=== PATIENT | female | born 1985 | race Caucasian/White ===

== ENCOUNTER 2016-09-11 12:24 | Emergency (ER) | payer OTHER ==
[~2016-09-11 12:24] MED LIST: ALBUTEROL HFA60 DOSE IN; FERROUS SULFAT324 MG PO; FLUOXETINE HCL10 M1 PO; PERCOCET1 TA1 PO; VICODIN EQUIVAL1 TAB PO
--- NOTE | 2016-09-11 15:41 | DIAGNOSTIC IMAGING REPORT ---
PROCEDURE: US COMPLETE PELVIC W/TRANSVAG INDICATION: PELVIC PAIN TECHNIQUE: Transabdominal and endovaginal whelan scale and color Doppler sonographic images of the female pelvis were obtained. COMPARISON: Pelvic ultrasound dated 10/21/[address] of the abdomen and pelvis dated 08/25/14 FINDINGS: TRANSABDOMINAL SCANS: Anteverted uterus measures 8.7 x 4.7 x 6.7 cm. Bicornuate morphology is present. Endometrium measures about 8 mm in thickness. The right ovary contains a dominant follicle measuring 2.4 cm. No myometrial masses. TRANSVAGINAL SCANS: The myometrium is normal without mass. Normal morphology of a bicornuate variety. Greatest endometrial thickness is 8 mm. Left ovary was not identified. Right ovary measures 3.4 x 2.8 x 3.6 cm and contains a dominant 2.4 cm follicle and normal vascular flow. IMPRESSION: 1. Bicornuate uterus. 2. right ovary 2.4 cm follicle
--- NOTE | 2016-09-11 16:19 | DIAGNOSTIC IMAGING REPORT ---
PROCEDURE: CT ABD/PELVIS WITH CONTRAST CLINICAL INDICATION: Mid abdominal pain x 3 days, initial encounter TECHNIQUE: 95 ml of Isovue 300 were injected intravenously and axial images were obtained of the entire abdomen and pelvis with sagittal and coronal reformations. The patient has a shellfish allergy and was premedicated with 50 mg of Benadryl prior to the examination. The patient tolerated the examination well. COMPARISON: Pelvic ultrasound 09/11/[address] abdomen/pelvis 08/25/2014 FINDINGS: ABDOMEN: Lung base are clear. Heart size is normal. Liver, gallbladder, pancreas, spleen and adrenal glands are normal. Multiple nonobstructing bilateral calculi, largest on the left 3 mm. Left renal cysts. Normal abdominal aorta. Nonspecific bowel gas pattern. PELVIS: Normal appendix. Bilateral tubal ligation clips. 4 cm right ovarian cyst. No inflammatory changes or free fluid. 1 cm fat filled umbilical hernia. Bones are unremarkable. IMPRESSION: 1. Nonobstructing bilateral renal calculi 2. 4 cm right ovarian cyst 3. Status post tubal ligation 4. Results discussed with ABA Leach All CT scans at this facility use dose modulation, iterative reconstruction, and/or weight-based dosing when appropriate to reduce radiation dose to as low as reasonably achievable.
--- NOTE | 2016-09-11 16:22 | ED NURSING NOTES ---
Clinical Report - Nurses [facility] [address] [place] [address] 09/11/2016 12:24 Patient: FRANNY PLUMMER TRIAGE Triage time 12:30. Acuity: LEVEL 3. Chief Complaint: ABDOMINAL PAIN. 12:30 09/11/16. 12:30 09/11/16. Alert. No acute distress. SEPSIS SCREEN: Sepsis Screen. Negative (no infection suspected/documented). ANNABEL COMA SCORE: Annabel Coma Scale: 15- eyes open spontaneously (4); best verbal response- oriented x 4 (5); best motor response- obeys commands (6). --12:36 Wong Torres R.N. 12:30 09/11/16. BP: 145/81. HR: 76. RR: 18. O2 saturation: 98% on room air. Temp: 97.9 F (oral). Pain level now: 05/14. --12:36 Wong Torres R.N. Weight: 99.7 kg stated. Height/Length: 68 inches Per Patient. BMI: 33.4. --12:31 Wong Torres R.N. Medications Albuterol Sulfate Inhalation 2 unit doses, PRN. Hydrocodone-Acetaminophen Oral (Tablet 5-325 mg) 1 tablet, 3x a day as needed. --12:32 Wong Torres R.N. Medication/allergy information source: the patient. --12:36 Wong Torres R.N. Allergies Cephalexin. Penicillins.(hives) Toradol. --12:32 Wong Torres R.N. Shellfish-derived Products. --15:15 Wong Torres R.N. History Arrived by private vehicle. Historian: patient. Unaccompanied. Primary physician (ALAN BASSETT). 12:30 09/11/16. ( 2 days ago Pt sent over from [facility]). She has had nausea and vomiting. Treatment STREETSWEEPER OPERATOR: (Zofran). PAST MEDICAL HX: Last normal menstrual period- 16 days late. Immunizations not up to date. SOCIAL HX: Current every day light tobacco smoker (cigarette)- less than 1/2 a pack per day. Alcohol use. History of drug use. No recent travel. She has had contact with a sick family member. No infectious disease exposure. ABUSE ASSESSMENT: No report of abuse. FALL RISK ASSESSMENT: Fall risk assessment completed. No fall risk identified. NUTRITIONAL RISK ASSESSMENT: The nutritional risk assessment revealed no deficiencies. FUNCTIONAL ASSESSMENT: Functional assessment: no impairments noted. LEARNING NEEDS ASSESSMENT: The learning needs assessment revealed no barriers. --12:36 Wong Torres R.N. PROBLEMS: Subchorionic Hemorrhage. Problems. Care. OB History. Anxiety Reaction. Sprain. Bronchitis. Lifestyle / Substance Problems. Asthma. URI. Immunizations. Abdominal Pain. Pelvic Pain. LNMP - Last Normal Menstrual Period. . --12:33 Wong Torres R.N. ADDITIONAL SURGERIES: . --12:33 Wong Torres R.N. Tubal Ligation. --12:37 Wong Torres R.N. Assessment 12:09/11/16. --12:36 Wong Torres R.N. Interventions 12:09/11/16. 12:09/11/16. ID and allergy band on patient. To treatment room. --12:36 Wong Torres R.N. PHYSICAL ASSESSMENT 12:09/11/16. Ambulatory to room. GENERAL / NEURO / PSYCH: Alert. Oriented X 4. Appears in pain. RESPIRATORY: Respirations not labored. CVS: Capillary refill less than 2 seconds. GI / : Abdominal tenderness in the lower abdomen. Last BM was This AM. SKIN: Skin is warm and dry. --12:33 Wong Torres R.N. NURSING PROGRESS NOTES 12:09/11/16. The plan of care for this patient has been created. Patient gowned. Head of bed elevated. Reassurance given. Two patient identifiers checked. Call light placed in reach. Side rails up x 2. Bed placed in lowest position. Brakes of bed on. Brakes of chair on. --12:33 Wong Torres R.N. 12:09/11/16. Patient ready for evaluation- chart flagged and notification provided. --12:33 Wong oTrres R.N. 12:37 09/11/16. Patient ID band checked for patient name and birthdate: patient confirmed. Clean catch urine collected with return of yellow-colored urine; sample sent to lab for urinalysis, culture and HCG. Specimen labeled in the presence of the patient. --12:37 Wong Torres R.N. 12:58 09/11/2016 Site #1 started via IV in the right antecubital space with an 20g angiocath, with aseptic technique and good blood return; one attempt. Blood drawn: rainbow set. Labeled in the presence of the patient and sent to the lab. Saline lock flushed with 10 mL saline. --12:58 Wong Torres R.N. 12:58 09/11/2016 Started bag #1 1000 mL IV Fluids IV NS (Saline); at 1000 mL/hr over 1 hour(s) via site #1. Allergies verified and confirmed 5 rights. IV patency established. IV site checked: no pain, redness, or swelling. IV flushed thoroughly pre- and post-medication administration. Completed per protocol. --12:58 Wong Torres R.N. 12:58 09/11/2016 Zofran (Ondansetron HCl) IVP 4 mg given over 2 minute(s) via site #1. Allergies verified and confirmed 5 rights. IV patency established. IV site checked: no pain, redness, or swelling. IV flushed thoroughly pre- and post-medication administration. IVP given by RN. --12:58 Wong Torres R.N. 13:00 09/11/16. --13:00 Wong Torres R.N. 13:00 09/11/16. BP: 129/80. HR: 68. RR: 14. O2 saturation: 100% on room air. --13:00 Wong Torres R.N. 13:00 09/11/16. Patient informed about reason for wait and about plan of care. --13:00 Wong Torres R.N. 13:15 09/11/2016 Dilaudid (HYDROmorphone HCl PF) IVP 0.5 mg given over 2 minute(s) via site #1. Allergies verified, confirmed 5 rights and sedative warning given to the patient. IV patency established. IV site checked: no pain, redness, or swelling. IV flushed thoroughly pre- and post-medication administration. IVP given by RN. --13:15 Wong Torers R.N. PELVIC EXAM: Pelvic exam performed by PA. Assisted by one nurse and tech. Preparation: pelvic tray. Total time of assist / procedure: 15 minutes. --13:27 Elizabeth Lombardo, ER Tech1 13:30 09/11/16. Patient and family informed about reason for wait and about plan of care. --13:30 Wong Torres R.N. 13:30 09/11/16. ( US to be completed). --13:30 Wong Torres R.N. 13:40 09/11/16. BP: 128/89. HR: 60. RR: 12. O2 saturation: 100% on room air. --13:41 Wong Torres R.N. 13:41 09/11/16. --13:41 Wong Torres R.N. 13:41 09/11/16. Patient waiting for diagnostic study to be done (US). --13:41 Wong Torres R.N. 15:13 09/11/2016 Benadryl (DiphenhydrAMINE HCl) IVP 50 mg given over 2 minute(s) via site #1. Allergies verified, confirmed 5 rights and sedative warning given to the patient. IV patency established. IV site checked: no pain, redness, or swelling. IV flushed thoroughly pre- and post-medication administration. IVP given by RN. --15:14 Wong Torres R.N. 15:14 09/11/16. BP: 116/86. HR: 70. RR: 14. O2 saturation: 100% on room air. --15:14 Wong Torres R.N. 15:14 09/11/16. --15:14 Wong Torres R.N. 15:14 09/11/16. Patient and family informed about reason for wait and about plan of care. --15:14 Wong Torres R.N. 15:14 09/11/16. Patient waiting for disposition. --15:14 Wong Torres R.N. 16:10 09/11/16. BP: 117/70. HR: 80. RR: 14. O2 saturation: 99% on room air. Pain level now: 03/14. --16:11 Wong Torres R.N. 16:11 09/11/16. --16:11 Wong Torres R.N. 16:11 09/11/16. Patient informed about reason for wait and about plan of care. --16:11 Wong Torres R.N. 16:11 09/11/16. Patient waiting for disposition. --16:11 Wong Torres R.N. 16:11 09/11/16. Patient waiting for CT results. --16:11 Wong Torres R.N. 16:13 09/11/2016 Dilaudid (HYDROmorphone HCl PF) IVP 0.5 mg given over 2 minute(s) via site #1. Allergies verified, confirmed 5 rights and sedative warning given to the patient. IV patency established. IV site checked: no pain, redness, or swelling. IV flushed thoroughly pre- and post-medication administration. IVP given by RN. --16:13 Wong Torres R.N. 16:25. Reassessment after fluids administered, procedure and medication administered. She is resting quietly. Overall patient status is improved- she states feels better. SKIN: Skin is warm and dry. --16:35 Anaid Coats R.N. DISPOSITION / DISCHARGE Departure time: 1624. Condition at departure: stable. No learning barriers present. Discharge instructions provided and reviewed with the patient. Reviewed medication(s). Prescription(s) given to the patient. Patient verbalized understanding. Written instructions provided in [place] Islander. The patient was discharged home and unaccompanied at time of discharge. She left the Emergency Department ambulatory and via private vehicle. Driving (called her to come pick her up). FALL RISK ASSESSMENT: Fall risk assessment completed. No fall risk identified. --16:34 Anaid Coats R.N. 16:33 09/11/16. BP: 121/70. HR: 72. RR: 16. O2 saturation: 100% on room air. Pain level now: 10/12. --16:34 Anaid Coats R.N. Locked/Released at 09/11/2016 16:36 by Anaid Coats R.N.
--- NOTE | 2016-09-11 16:22 | ED NURSING NOTES ---
Clinical Report - Nurses [facility] [address] [place] [address] 09/11/2016 12:24 Patient: FRANNY PLUMMER TRIAGE Triage time 12:30. Acuity: LEVEL 3. Chief Complaint: ABDOMINAL PAIN. 12:30 09/11/16. 12:30 09/11/16. Alert. No acute distress. SEPSIS SCREEN: Sepsis Screen. Negative (no infection suspected/documented). ANNABEL COMA SCORE: Annabel Coma Scale: 15- eyes open spontaneously (4); best verbal response- oriented x 4 (5); best motor response- obeys commands (6). --12:36 Wong Torres R.N. 12:30 09/11/16. BP: 145/81. HR: 76. RR: 18. O2 saturation: 98% on room air. Temp: 97.9 F (oral). Pain level now: 05/14. --12:36 Wong Torres R.N. Weight: 99.7 kg stated. Height/Length: 68 inches Per Patient. BMI: 33.4. --12:31 Wong Torres R.N. Medications Albuterol Sulfate Inhalation 2 unit doses, PRN. Hydrocodone-Acetaminophen Oral (Tablet 5-325 mg) 1 tablet, 3x a day as needed. --12:32 Wong Torres R.N. Medication/allergy information source: the patient. --12:36 Wong Torres R.N. Allergies Cephalexin. Penicillins.(hives) Toradol. --12:32 Wong Torres R.N. Shellfish-derived Products. --15:15 Wong Torres R.N. History Arrived by private vehicle. Historian: patient. Unaccompanied. Primary physician (ALAN BASSETT). 12:30 09/11/16. ( 2 days ago Pt sent over from [facility]). She has had nausea and vomiting. Treatment RESIDENTIAL GAS HEAT TECHNICIAN: (Zofran). PAST MEDICAL HX: Last normal menstrual period- 16 days late. Immunizations not up to date. SOCIAL HX: Current every day light tobacco smoker (cigarette)- less than 1/2 a pack per day. Alcohol use. History of drug use. No recent travel. She has had contact with a sick family member. No infectious disease exposure. ABUSE ASSESSMENT: No report of abuse. FALL RISK ASSESSMENT: Fall risk assessment completed. No fall risk identified. NUTRITIONAL RISK ASSESSMENT: The nutritional risk assessment revealed no deficiencies. FUNCTIONAL ASSESSMENT: Functional assessment: no impairments noted. LEARNING NEEDS ASSESSMENT: The learning needs assessment revealed no barriers. --12:36 Wong Torres R.N. PROBLEMS: Subchorionic Hemorrhage. Problems. Care. OB History. Anxiety Reaction. Sprain. Bronchitis. Lifestyle / Substance Problems. Asthma. URI. Immunizations. Abdominal Pain. Pelvic Pain. LNMP - Last Normal Menstrual Period. . --12:33 Wong Torres R.N. ADDITIONAL SURGERIES: . --12:33 Wong Torres R.N. Tubal Ligation. --12:37 Wong Torres R.N. Assessment 12:09/11/16. --12:36 oWng Torres R.N. Interventions 12:09/11/16. 12:09/11/16. ID and allergy band on patient. To treatment room. --12:36 Wong Torres R.N. PHYSICAL ASSESSMENT 12:09/11/16. Ambulatory to room. GENERAL / NEURO / PSYCH: Alert. Oriented X 4. Appears in pain. RESPIRATORY: Respirations not labored. CVS: Capillary refill less than 2 seconds. GI / : Abdominal tenderness in the lower abdomen. Last BM was This AM. SKIN: Skin is warm and dry. --12:33 Wong Torres R.N. NURSING PROGRESS NOTES 12:09/11/16. The plan of care for this patient has been created. Patient gowned. Head of bed elevated. Reassurance given. Two patient identifiers checked. Call light placed in reach. Side rails up x 2. Bed placed in lowest position. Brakes of bed on. Brakes of chair on. --12:33 Wong Torres R.N. 12:09/11/16. Patient ready for evaluation- chart flagged and notification provided. --12:33 Wong Torres R.N. 12:37 09/11/16. Patient ID band checked for patient name and birthdate: patient confirmed. Clean catch urine collected with return of yellow-colored urine; sample sent to lab for urinalysis, culture and HCG. Specimen labeled in the presence of the patient. --12:37 Wong Torres R.N. 12:58 09/11/2016 Site #1 started via IV in the right antecubital space with an 20g angiocath, with aseptic technique and good blood return; one attempt. Blood drawn: rainbow set. Labeled in the presence of the patient and sent to the lab. Saline lock flushed with 10 mL saline. --12:58 Wong Torres R.N. 12:58 09/11/2016 Started bag #1 1000 mL IV Fluids IV NS (Saline); at 1000 mL/hr over 1 hour(s) via site #1. Allergies verified and confirmed 5 rights. IV patency established. IV site checked: no pain, redness, or swelling. IV flushed thoroughly pre- and post-medication administration. Completed per protocol. --12:58 Wong Torres R.N. 12:58 09/11/2016 Zofran (Ondansetron HCl) IVP 4 mg given over 2 minute(s) via site #1. Allergies verified and confirmed 5 rights. IV patency established. IV site checked: no pain, redness, or swelling. IV flushed thoroughly pre- and post-medication administration. IVP given by RN. --12:58 Wong Torres R.N. 13:00 09/11/16. --13:00 Wong Torres R.N. 13:00 09/11/16. BP: 129/80. HR: 68. RR: 14. O2 saturation: 100% on room air. --13:00 Wong Torres R.N. 13:00 09/11/16. Patient informed about reason for wait and about plan of care. --13:00 Wong Torres R.N. 13:15 09/11/2016 Dilaudid (HYDROmorphone HCl PF) IVP 0.5 mg given over 2 minute(s) via site #1. Allergies verified, confirmed 5 rights and sedative warning given to the patient. IV patency established. IV site checked: no pain, redness, or swelling. IV flushed thoroughly pre- and post-medication administration. IVP given by RN. --13:15 Wong Torres R.N. PELVIC EXAM: Pelvic exam performed by PA. Assisted by one nurse and tech. Preparation: pelvic tray. Total time of assist / procedure: 15 minutes. --13:27 Elizabeth Lombardo, ER Tech1 13:30 09/11/16. Patient and family informed about reason for wait and about plan of care. --13:30 Wong Torres R.N. 13:30 09/11/16. ( US to be completed). --13:30 Wong Torres R.N. 13:40 09/11/16. BP: 128/89. HR: 60. RR: 12. O2 saturation: 100% on room air. --13:41 Wong Torres R.N. 13:41 09/11/16. --13:41 Wong Torres R.N. 13:41 09/11/16. Patient waiting for diagnostic study to be done (US). --13:41 Wong Torres R.N. 15:13 09/11/2016 Benadryl (DiphenhydrAMINE HCl) IVP 50 mg given over 2 minute(s) via site #1. Allergies verified, confirmed 5 rights and sedative warning given to the patient. IV patency established. IV site checked: no pain, redness, or swelling. IV flushed thoroughly pre- and post-medication administration. IVP given by RN. --15:14 Wong Torres R.N. 15:14 09/11/16. BP: 116/86. HR: 70. RR: 14. O2 saturation: 100% on room air. --15:14 Wong Torres R.N. 15:14 09/11/16. --15:14 Wong Torres R.N. 15:14 09/11/16. Patient and family informed about reason for wait and about plan of care. --15:14 Wong Torres R.N. 15:14 09/11/16. Patient waiting for disposition. --15:14 Wong Torres R.N. 16:10 09/11/16. BP: 117/70. HR: 80. RR: 14. O2 saturation: 99% on room air. Pain level now: 03/14. --16:11 Wong Torres R.N. 16:11 09/11/16. --16:11 Wong Torres R.N. 16:11 09/11/16. Patient informed about reason for wait and about plan of care. --16:11 Wong Torres R.N. 16:11 09/11/16. Patient waiting for disposition. --16:11 Wong Torres R.N. 16:11 09/11/16. Patient waiting for CT results. --16:11 Wong Torres R.N. 16:13 09/11/2016 Dilaudid (HYDROmorphone HCl PF) IVP 0.5 mg given over 2 minute(s) via site #1. Allergies verified, confirmed 5 rights and sedative warning given to the patient. IV patency established. IV site checked: no pain, redness, or swelling. IV flushed thoroughly pre- and post-medication administration. IVP given by RN. --16:13 Wong Torres R.N. 16:25. Reassessment after fluids administered, procedure and medication administered. She is resting quietly. Overall patient status is improved- she states feels better. SKIN: Skin is warm and dry. --16:35 Anaid Coats R.N. DISPOSITION / DISCHARGE Departure time: 1624. Condition at departure: stable. No learning barriers present. Discharge instructions provided and reviewed with the patient. Reviewed medication(s). Prescription(s) given to the patient. Patient verbalized understanding. Written instructions provided in [place]ran. The patient was discharged home and unaccompanied at time of discharge. She left the Emergency Department ambulatory and via private vehicle. Driving (called her to come pick her up). FALL RISK ASSESSMENT: Fall risk assessment completed. No fall risk identified. --16:34 Anaid Coats R.N. 16:33 09/11/16. BP: 121/70. HR: 72. RR: 16. O2 saturation: 100% on room air. Pain level now: 10/12. --16:34 Anaid Coats R.N. Locked/Released at 09/11/2016 16:36 by Anaid Coats R.N.
--- NOTE | 2016-09-11 16:22 | ED CLINICAL REPORT ---
Clinical Report - Physicians/Mid Levels [facility] [address] [place] [address] 09/11/2016 12:24 Patient: FRANNY PLUMMER Time Seen: 13:11 Sep 11 2016. Arrived- By private vehicle. Historian- patient. HISTORY OF PRESENT ILLNESS Chief Complaint: ABDOMINAL PAIN. This started 3 days and is still present. The patient has had nausea and vomiting. No diarrhea. (Patient reports 3 days of worsening abdominal pain on the right side, with radiation. No melana, no hematochezia. oain worsening sharp on the right side. No diarrhea. No history of similar pain. Saw her primary care doctor, who was concerned that she may have ectopic, as she is about 6 weeks from her last menstrual period, which she has regularly, patient is status post bilateral tubal ligation. No discharge.). REVIEW OF SYSTEMS No constipation, black stools, hematemesis, difficulty with urination or pain with urination. No urinary frequency, fever, headache, chest pain or difficulty breathing. No chills. All systems otherwise negative, except as recorded above. PAST HISTORY No history of gallstones. SOCIAL HISTORY No drug use. ADDITIONAL NOTES The nursing notes have been reviewed. PHYSICAL EXAM Vital Signs: 09/11/2016 12:30 BP: 145/81. HR: 76. RR: 18. O2 saturation: 98%. Temp: 97.9 F. Pain level now: 10/10. Appearance: Alert. Anxious. Appears to be in pain. Patient in mild distress. Eyes: Pupils equal, round and reactive to light. Eyes normal inspection. ENT: Ears normal. No nasal discharge or pharyngeal erythema. Neck: Normal inspection. CVS: Normal heart rate and rhythm. Heart sounds normal. Respiratory: No respiratory distress. Breath sounds normal. Abdomen: Mild tenderness in the right lower quadrant and suprapubic area with rebound tenderness present. No organomegaly. No mass. The bowel sounds are not abnormal. No mass present. Back: Normal inspection. No CVA tenderness. : Normal external exam. No vaginal bleeding or discharge. Bimanual exam normal. Mild right adnexal tenderness; uterine tenderness. No left adnexal tenderness. No cervical motion tenderness. Skin: Skin warm. Normal skin color. Neuro: Oriented X 3. LABS, X-RAYS, AND EKG Abdominal CT: IMPRESSION: 1. Nonobstructing bilateral renal calculi 2. 4 cm right ovarian cyst 3. Status post tubal ligation 4. Results discussed with ABA Leach All CT scans at this facility use dose modulation, iterative reconstruction, and/or weight-based dosing when appropriate to reduce radiation dose to as low as reasonably achievable. Electronically Final signed by:Gerry Xie MD 09/11/2016 4:19:40 PM. Pelvic Sonogram: IMPRESSION: 1. Bicornuate uterus. 2. right ovary 2.4 cm follicle Electronically Final signed by:Rocky Blancas MD 09/11/2016 3:45:11 PM. Laboratory Tests: UA-Culture if indicated: (DOREEN: 09/11/2016 12:40) ( MtgRcvd 09/11/2016 12:54) Final results Test Result Flag Units (Reference) URINE COLOR YELLOW URINE APPEARANCE CLEAR URINE GLUCOSE NEGATIVE (NEGATIVE) URINE BILIRUBIN NEGATIVE (NEGATIVE) URINE KETONE NEGATIVE (NEGATIVE) URINE SPECIFIC GRAVITY 1.010 (1.010-1.030) URINE PH 6.5 (5.0-8.0) URINE PROTEIN NEGATIVE (NEGATIVE) URINE UROBILINOGEN 0.2 EU/dL (0.2-1.0) URINE NITRITE NEGATIVE (NEGATIVE) URINE BLOOD NEGATIVE (NEGATIVE) URINE LEUK ESTERASE NEGATIVE (NEGATIVE) URINE RBC NONE SEEN rbc/hpf (0-1) URINE WBC RARE wbc/hpf (0-1) URINE EPITHELIAL CELLS 0-1 EPI/hpf (0-5) URINE BACTERIA NONE SEEN (NONE SEEN) URINE COMMENT CULT NOT INDICATED URINE CULTURES ARE SET-UP BASED ON THE FOLLOWING CRITERIA:POSITIVE NITRITEPOSITIVE LEUKOCYTE ESTERASEGREATER THAN 10 WHITE BLOOD CELLSMODERATE (2+) OR GREATER BACTERIA Urine: (DOREEN: 09/11/2016 12:40) ( [facility] 09/11[facility] 12:49) Final results Test Result Flag Units (Reference) URINE NEGATIVE CBC w Diff: (DOREEN: 09/11/2016 13:00) ( [facility] 09/11/2016 13:31) Final results Test Result Flag Units (Reference) WHITE BLOOD COUNT 9.8 K/uL (4.5-11.5) RED BLOOD COUNT 5.64 H M/uL (4.00-5.20) HEMOGLOBIN 11.8 L gm/dL (12.0-16.0) HEMATOCRIT 37.8 % (36.0-46.0) MEAN CELL VOLUME 67 L fL (80-100) MEAN CORPUSCULAR HGB 21 L pg (26-34) MEAN CORPUSCULAR HGB CONC 31 g/dL (31-37) RED CELL DISTRIBUTION WIDTH 14.1 % (11.6-14.8) PLATELET COUNT 281 K/uL (150-400) LYMPH % 19.3 L % (25-40) MONO % 5.1 % (3-14) GRANULOCYTE % 75.6 (53-90) RBC MORPHOLOGY 2+ MICROCYTOSIS~~2+ ANISOCYTOSIS~~1+ TARGET CELL~~1+ HYPOCHROMASIA Serum Quantitative: (DOREEN: 09/11/2016 13:00) ( [facility] 09/11/2016 14:01) Final results Test Result Flag Units (Reference) BETA HCG, QUANTITATIVE <1 mIU/mL REFERENCE RANGE:Adult Males: <2 mIU/mLNon- Females: <6 mIU/mL Females:Approximate Approximate hCGGestational Age Range (mIU/mL) 0-1 week 0-501-2 weeks 40-3002-3 weeks 100-76997-9 weeks 500-85132-9 months 5,000-200,0002-3 months 10,000-100,0002nd trimester 3,000-50,0003rd trimester 1,000-50,000 CMP: (DOREEN: 09/11/2016 13:00) ( [facility] 09/11/2016 13:27) Final results Test Result Flag Units (Reference) GLUCOSE 93 mg/dL (70-110) BUN 13 mg/dL (7-18) CREATININE 0.8 mg/dL (0.6-1.3) Estimated GFR >60 mL/min Estimated GFR- >60 mL/min Note: Persistent reduction over 3 months in eGFR<60 mL/min/1.73 m2 defines CKD. Patients with eGFR values>=60 mL/min/1.73 m2 may also have CKD if evidence ofpersistent proteinuria. Additional information may be foundat www.kidney.org. SODIUM 139 mmol/L (136-145) POTASSIUM 4.2 mmol/L (3.5-5.1) CHLORIDE 104 mmol/L (98-107) CARBON DIOXIDE 26 mmol/L (21-32) CALCIUM 8.4 L mg/dL (8.5-10.1) TOTAL PROTEIN 7.3 g/dL (6.4-8.2) ALBUMIN 3.5 g/dL (3.3-5.0) BILIRUBIN, TOTAL 0.4 mg/dL (0.0-1.0) ALKALINE PHOSPHATASE 67 U/L (46-116) AST (SGOT) 13 L U/L (15-37) ALT (SGPT) 21 U/L (12-78) LIPASE 157 U/L (73-393) AMYLASE 35 U/L (25-115) Wet Prep: (DOREEN: 09/11/2016 13:30) ( MsgRcvd 09/11/2016 13:46) Final results SPECIMEN DESCRIPTION: C Test Result Flag Units (Reference) WET MOUNT CLUE CELLS:: NONE EPITHELIAL CELLS: FEW -- SOURCE?: CERVIX WHITE BLOOD CELLS: RARE TRICHOMONAS:: NONE -- YEAST:: NONE . PROGRESS AND PROCEDURES Course of Care: Patient in the ER with no signs of acute surgical abdomen. No sign of ectopic, or torsion, good flow, patient with signs of ovarian cyst. During the time in the ED, the following DDX were considered: acute surgical abdomen, hemodynamic or metabolic instability, dehydration, gastroenteritis-viral, food borne, or bacterial, food intolerance, irritable or inflammatory bowel, infection, sepsis. 09/11/2016 16:33 BP: 121/70. HR: 72. RR: 16. O2 saturation: 100%. Pain level now: 10/12. 09/11/2016 16:10 BP: 117/70. HR: 80. RR: 14. O2 saturation: 99%. Pain level now: 03/14. 09/11/2016 15:14 BP: 116/86. HR: 70. RR: 14. O2 saturation: 100%. Patient is stable. Symptoms better. Patient/family counseled. Differential Diagnosis: I considered gastritis, gastroenteritis, peptic ulcer disease, gastroesophageal reflux disease, acute appendicitis, mesenteric lymphadenitis, diverticulitis, small bowel obstruction, adhesions, biliary colic, hepatitis, splenic injury, intraabdominal abscess, urinary tract infection, cystitis, ovarian cyst and pelvic inflammatory disease as a possible cause of abdominal pain in this patient. This is a partial list of diagnoses considered. Disposition: Discharged. Condition: good. CLINICAL IMPRESSION Single right ovarian cyst. INSTRUCTIONS Drink plenty of fluids. (pelvic rest). Prescription Medications: Hydrocodone/APAP 7.5mg / 325mg: take 1 orally every 6 hours as needed for pain. Dispense twelve (12). No refill. Follow-up: Follow up with your doctor in three days as needed. Follow-up with: Sp العراقي MD, Obstetrics/Gynecology, , [facility], [address] [place] [address] Follow up. Call for the next available appointment. (Electronically signed by Julia Brown P.A.-C 09/11/2016 17:33)
--- NOTE | 2016-09-11 16:22 | ED CLINICAL REPORT ---
Clinical Report - Physicians/Mid Levels [facility] [address] [place] [address] 09/11/2016 12:24 Patient: FRANNY PLUMMER Time Seen: 13:11 Sep 11 2016. Arrived- By private vehicle. Historian- patient. HISTORY OF PRESENT ILLNESS Chief Complaint: ABDOMINAL PAIN. This started 3 days and is still present. The patient has had nausea and vomiting. No diarrhea. (Patient reports 3 days of worsening abdominal pain on the right side, with radiation. No melana, no hematochezia. oain worsening sharp on the right side. No diarrhea. No history of similar pain. Saw her primary care doctor, who was concerned that she may have ectopic, as she is about 6 weeks from her last menstrual period, which she has regularly, patient is status post bilateral tubal ligation. No discharge.). REVIEW OF SYSTEMS No constipation, black stools, hematemesis, difficulty with urination or pain with urination. No urinary frequency, fever, headache, chest pain or difficulty breathing. No chills. All systems otherwise negative, except as recorded above. PAST HISTORY No history of gallstones. SOCIAL HISTORY No drug use. ADDITIONAL NOTES The nursing notes have been reviewed. PHYSICAL EXAM Vital Signs: 09/11/2016 12:30 BP: 145/81. HR: 76. RR: 18. O2 saturation: 98%. Temp: 97.9 F. Pain level now: 10/10. Appearance: Alert. Anxious. Appears to be in pain. Patient in mild distress. Eyes: Pupils equal, round and reactive to light. Eyes normal inspection. ENT: Ears normal. No nasal discharge or pharyngeal erythema. Neck: Normal inspection. CVS: Normal heart rate and rhythm. Heart sounds normal. Respiratory: No respiratory distress. Breath sounds normal. Abdomen: Mild tenderness in the right lower quadrant and suprapubic area with rebound tenderness present. No organomegaly. No mass. The bowel sounds are not abnormal. No mass present. Back: Normal inspection. No CVA tenderness. : Normal external exam. No vaginal bleeding or discharge. Bimanual exam normal. Mild right adnexal tenderness; uterine tenderness. No left adnexal tenderness. No cervical motion tenderness. Skin: Skin warm. Normal skin color. Neuro: Oriented X 3. LABS, X-RAYS, AND EKG Abdominal CT: IMPRESSION: 1. Nonobstructing bilateral renal calculi 2. 4 cm right ovarian cyst 3. Status post tubal ligation 4. Results discussed with ABA Leach All CT scans at this facility use dose modulation, iterative reconstruction, and/or weight-based dosing when appropriate to reduce radiation dose to as low as reasonably achievable. Electronically Final signed by:Gerry Xie MD 09/11/2016 4:19:40 PM. Pelvic Sonogram: IMPRESSION: 1. Bicornuate uterus. 2. right ovary 2.4 cm follicle Electronically Final signed by:Rocky Blancas MD 09/11/2016 3:45:11 PM. Laboratory Tests: UA-Culture if indicated: (DOREEN: 09/11/2016 12:40) ( CtgRcvd 09/11/2016 12:54) Final results Test Result Flag Units (Reference) URINE COLOR YELLOW URINE APPEARANCE CLEAR URINE GLUCOSE NEGATIVE (NEGATIVE) URINE BILIRUBIN NEGATIVE (NEGATIVE) URINE KETONE NEGATIVE (NEGATIVE) URINE SPECIFIC GRAVITY 1.010 (1.010-1.030) URINE PH 6.5 (5.0-8.0) URINE PROTEIN NEGATIVE (NEGATIVE) URINE UROBILINOGEN 0.2 EU/dL (0.2-1.0) URINE NITRITE NEGATIVE (NEGATIVE) URINE BLOOD NEGATIVE (NEGATIVE) URINE LEUK ESTERASE NEGATIVE (NEGATIVE) URINE RBC NONE SEEN rbc/hpf (0-1) URINE WBC RARE wbc/hpf (0-1) URINE EPITHELIAL CELLS 0-1 EPI/hpf (0-5) URINE BACTERIA NONE SEEN (NONE SEEN) URINE COMMENT CULT NOT INDICATED URINE CULTURES ARE SET-UP BASED ON THE FOLLOWING CRITERIA:POSITIVE NITRITEPOSITIVE LEUKOCYTE ESTERASEGREATER THAN 10 WHITE BLOOD CELLSMODERATE (2+) OR GREATER BACTERIA Urine: (DOREEN: 09/11/2016 12:40) ( [facility] 09/11/2016 12:49) Final results Test Result Flag Units (Reference) URINE NEGATIVE CBC w Diff: (DOREEN: 09/11/2016 13:00) ( [facility] 09/11/2016 13:31) Final results Test Result Flag Units (Reference) WHITE BLOOD COUNT 9.8 K/uL (4.5-11.5) RED BLOOD COUNT 5.64 H M/uL (4.00-5.20) HEMOGLOBIN 11.8 L gm/dL (12.0-16.0) HEMATOCRIT 37.8 % (36.0-46.0) MEAN CELL VOLUME 67 L fL (80-100) MEAN CORPUSCULAR HGB 21 L pg (26-34) MEAN CORPUSCULAR HGB CONC 31 g/dL (31-37) RED CELL DISTRIBUTION WIDTH 14.1 % (11.6-14.8) PLATELET COUNT 281 K/uL (150-400) LYMPH % 19.3 L % (25-40) MONO % 5.1 % (3-14) GRANULOCYTE % 75.6 (53-90) RBC MORPHOLOGY 2+ MICROCYTOSIS~~2+ ANISOCYTOSIS~~1+ TARGET CELL~~1+ HYPOCHROMASIA Serum Quantitative: (DOREEN: 09/11/2016 13:00) ( [facility] 09/11/2016 14:01) Final results Test Result Flag Units (Reference) BETA HCG, QUANTITATIVE <1 mIU/mL REFERENCE RANGE:Adult Males: <2 mIU/mLNon- Females: <6 mIU/mL Females:Approximate Approximate hCGGestational Age Range (mIU/mL) 0-1 week 0-501-2 weeks 40-3002-3 weeks 100-50652-2 weeks 500-43572-4 months 5,000-200,0002-3 months 10,000-100,0002nd trimester 3,000-50,0003rd trimester 1,000-50,000 CMP: (DOREEN: 09/11/2016 13:00) ( [facility] 09/11/2016 13:27) Final results Test Result Flag Units (Reference) GLUCOSE 93 mg/dL (70-110) BUN 13 mg/dL (7-18) CREATININE 0.8 mg/dL (0.6-1.3) Estimated GFR >60 mL/min Estimated GFR- >60 mL/min Note: Persistent reduction over 3 months in eGFR<60 mL/min/1.73 m2 defines CKD. Patients with eGFR values>=60 mL/min/1.73 m2 may also have CKD if evidence ofpersistent proteinuria. Additional information may be foundat www.kidney.org. SODIUM 139 mmol/L (136-145) POTASSIUM 4.2 mmol/L (3.5-5.1) CHLORIDE 104 mmol/L (98-107) CARBON DIOXIDE 26 mmol/L (21-32) CALCIUM 8.4 L mg/dL (8.5-10.1) TOTAL PROTEIN 7.3 g/dL (6.4-8.2) ALBUMIN 3.5 g/dL (3.3-5.0) BILIRUBIN, TOTAL 0.4 mg/dL (0.0-1.0) ALKALINE PHOSPHATASE 67 U/L (46-116) AST (SGOT) 13 L U/L (15-37) ALT (SGPT) 21 U/L (12-78) LIPASE 157 U/L (73-393) AMYLASE 35 U/L (25-115) Wet Prep: (DOREEN: 09/11/2016 13:30) ( MsgRcvd 09/11/2016 13:46) Final results SPECIMEN DESCRIPTION: C Test Result Flag Units (Reference) WET MOUNT CLUE CELLS:: NONE EPITHELIAL CELLS: FEW -- SOURCE?: CERVIX WHITE BLOOD CELLS: RARE TRICHOMONAS:: NONE -- YEAST:: NONE . PROGRESS AND PROCEDURES Course of Care: Patient in the ER with no signs of acute surgical abdomen. No sign of ectopic, or torsion, good flow, patient with signs of ovarian cyst. During the time in the ED, the following DDX were considered: acute surgical abdomen, hemodynamic or metabolic instability, dehydration, gastroenteritis-viral, food borne, or bacterial, food intolerance, irritable or inflammatory bowel, infection, sepsis. 09/11/2016 16:33 BP: 121/70. HR: 72. RR: 16. O2 saturation: 100%. Pain level now: 10/12. 09/11/2016 16:10 BP: 117/70. HR: 80. RR: 14. O2 saturation: 99%. Pain level now: 03/14. 09/11/2016 15:14 BP: 116/86. HR: 70. RR: 14. O2 saturation: 100%. Patient is stable. Symptoms better. Patient/family counseled. Differential Diagnosis: I considered gastritis, gastroenteritis, peptic ulcer disease, gastroesophageal reflux disease, acute appendicitis, mesenteric lymphadenitis, diverticulitis, small bowel obstruction, adhesions, biliary colic, hepatitis, splenic injury, intraabdominal abscess, urinary tract infection, cystitis, ovarian cyst and pelvic inflammatory disease as a possible cause of abdominal pain in this patient. This is a partial list of diagnoses considered. Disposition: Discharged. Condition: good. CLINICAL IMPRESSION Single right ovarian cyst. INSTRUCTIONS Drink plenty of fluids. (pelvic rest). Prescription Medications: Hydrocodone/APAP 7.5mg / 325mg: take 1 orally every 6 hours as needed for pain. Dispense twelve (12). No refill. Follow-up: Follow up with your doctor in three days as needed. Follow-up with: Sp العراقي MD, Obstetrics/Gynecology, , [facility], [address] [place] [address] Follow up. Call for the next available appointment. (Electronically signed by Julia Brown P.A.-C 09/11/2016 17:33)
--- NOTE | 2016-09-11 16:23 | ED ORDER SUMMARY ---
..... Patient: FRANNY PLUMMER OrderSheet [facility] VisitID: [id number] [place] [address] 31y, F Registration Date/Time: 09/11/2016 ORDER SHEET Weight: 99.7 kg (stated) Allergies: Cephalexin, Penicillins, Toradol, Shellfish-derived Products GENERAL ORDERS: UA-Culture if indicated Urgent (12:36 09/11/2016 JBoardley R.N. per protocol) (Ack 12:40 LNations ER Tech1) (12:57 JBoardley R.N.) Urine Urgent (12:36 09/11/2016 JBoardley R.N. per protocol) (Ack 12:40 LNations ER Tech1) (12:57 JBoardley R.N.) CBC w Diff Urgent (12:57 09/11/2016 JBoardley R.N. per protocol) (12:58 JBoardley R.N.) CMP Urgent (12:57 09/11/2016 JBoardley R.N. per protocol) (12:58 JBoardley R.N.) Amylase Urgent (12:57 09/11/2016 JBoardley R.N. per protocol) (12:58 JBoardley R.N.) Lipase Urgent (12:57 09/11/2016 JBoardley R.N. per protocol) (12:58 JBoardley R.N.) Serum Quantitative Urgent (13:10 09/11/2016 EKoroleva P.A.-C) (Ack 13:24 NHouse ER Tech1) (13:24 NHouse ER Tech1) Pelvic Exam Setup (13:11 09/11/2016 EKoroleva P.A.-C) (13:15 JBoardley R.N.) US Pelvic Complete w Transvag Urgent (13:27 09/11/2016 EKoroleva P.A.-C) (Ack 13:34 NHouse ER Tech1) (14:02 NHouse ER Tech1) Wet Prep (Cervix) (c) Urgent (13:31 09/11/2016 EKoroleva P.A.-C) (13:34 AKouse ER Tech1) GC/Chlamydia (Cervix) (c) Urgent (13:32 09/11/2016 EKoroleva P.A.-C) (13:34 AKouse ER Tech1) CT Abd/Pel w Cont (No) (see lab) Urgent (14:13 09/11/2016 EKoroleva P.A.-C) (Ack 14:15 AKouse ER Tech1) (15:11 JBoardley R.N.) MEDICATION ORDERS: IV FLUIDS: IV NS : initial bolus none -, then 1000 mL/hr for X1 (NOW); Routine (12:57 09/11/2016 JBoardley R.N. per protocol) (12:58 JBoardley R.N.) Zofran IV 4 mg (NOW) (12:57 09/11/2016 JBoardley R.N. per protocol) (12:58 JBoardley R.N.) Dilaudid IV 0.5 mg (HIGH ALERT MEDICATION, NOW) (13:11 09/11/2016 EKoroleva P.A.-C) (Ack 13:12 JBoardley R.N.) (13:15 JBoardley R.N.) Benadryl IV 50 mg (NOW) (15:08 09/11/2016 EKoroleva P.A.-C) (Ack 15:09 JBoardley R.N.) (15:14 JBoardley R.N.) Dilaudid IV 0.5 mg (HIGH ALERT MEDICATION, NOW) (16:11 09/11/2016 EKoroleva P.A.-C) (16:13 JBoardley R.N.) ORDER SHEET NOTES: [Electronically signed by Anaid Coats R.N. (16:36 09/11/2016)] [Electronically signed by Julia Brown P.A.-C (17:33 09/11/2016)] [Electronically locked/signed by Anaid Coats R.N. (16:36 09/11/2016)]
--- NOTE | 2016-09-11 16:23 | ED ORDER SUMMARY ---
..... Patient: FRANNY PLUMMER OrderSheet [facility] VisitID: [id number] [place] [address] 31y, F Registration Date/Time: 09/11/2016 ORDER SHEET Weight: 99.7 kg (stated) Allergies: Cephalexin, Penicillins, Toradol, Shellfish-derived Products GENERAL ORDERS: UA-Culture if indicated Urgent (12:36 09/11/2016 JBoardley R.N. per protocol) (Ack 12:40 LNations ER Tech1) (12:57 JBoardley R.N.) Urine Urgent (12:36 09/11/2016 JBoardley R.N. per protocol) (Ack 12:40 LNations ER Tech1) (12:57 JBoardley R.N.) CBC w Diff Urgent (12:57 09/11/2016 JBoardley R.N. per protocol) (12:58 JBoardley R.N.) CMP Urgent (12:57 09/11/2016 JBoardley R.N. per protocol) (12:58 JBoardley R.N.) Amylase Urgent (12:57 09/11/2016 JBoardley R.N. per protocol) (12:58 JBoardley R.N.) Lipase Urgent (12:57 09/11/2016 JBoardley R.N. per protocol) (12:58 JBoardley R.N.) Serum Quantitative Urgent (13:10 09/11/2016 EKoroleva P.A.-C) (Ack 13:24 NHouse ER Tech1) (13:24 NHouse ER Tech1) Pelvic Exam Setup (13:11 09/11/2016 EKoroleva P.A.-C) (13:15 JBoardley R.N.) US Pelvic Complete w Transvag Urgent (13:27 09/11/2016 EKoroleva P.A.-C) (Ack 13:34 NHouse ER Tech1) (14:02 NHouse ER Tech1) Wet Prep (Cervix) (c) Urgent (13:31 09/11/2016 EKoroleva P.A.-C) (13:34 WVouse ER Tech1) GC/Chlamydia (Cervix) (c) Urgent (13:32 09/11/2016 EKoroleva P.A.-C) (13:34 WVouse ER Tech1) CT Abd/Pel w Cont (No) (see lab) Urgent (14:13 09/11/2016 EKoroleva P.A.-C) (Ack 14:15 WVouse ER Tech1) (15:11 JBoardley R.N.) MEDICATION ORDERS: IV FLUIDS: IV NS : initial bolus none -, then 1000 mL/hr for X1 (NOW); Routine (12:57 09/11/2016 JBoardley R.N. per protocol) (12:58 JBoardley R.N.) Zofran IV 4 mg (NOW) (12:57 09/11/2016 JBoardley R.N. per protocol) (12:58 JBoardley R.N.) Dilaudid IV 0.5 mg (HIGH ALERT MEDICATION, NOW) (13:11 09/11/2016 EKoroleva P.A.-C) (Ack 13:12 JBoardley R.N.) (13:15 JBoardley R.N.) Benadryl IV 50 mg (NOW) (15:08 09/11/2016 EKoroleva P.A.-C) (Ack 15:09 JBoardley R.N.) (15:14 JBoardley R.N.) Dilaudid IV 0.5 mg (HIGH ALERT MEDICATION, NOW) (16:11 09/11/2016 EKoroleva P.A.-C) (16:13 JBoardley R.N.) ORDER SHEET NOTES: [Electronically signed by Anaid Coats R.N. (16:36 09/11/2016)] [Electronically signed by Julia Brown P.A.-C (17:33 09/11/2016)] [Electronically locked/signed by Anaid Coats R.N. (16:36 09/11/2016)]
--- NOTE | 2016-09-11 17:34 | ED MED RECONCILIATION SUMMARY ---
Patient: FRANNY PLUMMER Medication Reconciliation Report [facility] VisitID: [id number] [address] [place] [address] 31y, F Registration Date/Time: 09/11/2016 Weight: 99.7 kg Height/Length: 68 in. BMI: 33.4 ALLERGIES: Cephalexin, Penicillins, Shellfish-derived Products, Toradol The patient's Home Medications are listed below: THE FOLLOWING MEDICATIONS NEED TO BE RECONCILED: Albuterol Sulfate Inhalation 2 unit doses, PRN Hydrocodone-Acetaminophen Oral (5-325 mg) 1 tablet, 3x a day The source(s) of the original Home Medication information: patient The following Medications were given to the patient in the Emergency Department: IV NS IV Fluids bolus 0, then 1000 mL/hr, administered: 09/11/2016 12:58:00 PM Zofran [IVP] IVP 4 mg, administered: 09/11/2016 12:58:00 PM Dilaudid [IVP] IVP 0.5 mg, administered: 09/11/2016 1:15:00 PM Benadryl [IVP] IVP 50 mg, administered: 09/11/2016 3:13:00 PM Dilaudid [IVP] IVP 0.5 mg, administered: 09/11/2016 4:13:00 PM The following Medications were prescribed to the patient: Hydrocodone/APAP 7.5mg / 325mg: take 1 orally every 6 hours as needed for pain. Dispense twelve (12). No refill. -- Julia Brown, PRollyARolly-C
--- NOTE | 2016-09-11 17:34 | ED MED RECONCILIATION SUMMARY ---
Patient: FRANNY PLUMMER Medication Reconciliation Report [facility] VisitID: [id number] [address] [place] [address] 31y, F Registration Date/Time: 09/11/2016 Weight: 99.7 kg Height/Length: 68 in. BMI: 33.4 ALLERGIES: Cephalexin, Penicillins, Shellfish-derived Products, Toradol The patient's Home Medications are listed below: THE FOLLOWING MEDICATIONS NEED TO BE RECONCILED: Albuterol Sulfate Inhalation 2 unit doses, PRN Hydrocodone-Acetaminophen Oral (5-325 mg) 1 tablet, 3x a day The source(s) of the original Home Medication information: patient The following Medications were given to the patient in the Emergency Department: IV NS IV Fluids bolus 0, then 1000 mL/hr, administered: 09/11/2016 12:58:00 PM Zofran [IVP] IVP 4 mg, administered: 09/11/2016 12:58:00 PM Dilaudid [IVP] IVP 0.5 mg, administered: 09/11/2016 1:15:00 PM Benadryl [IVP] IVP 50 mg, administered: 09/11/2016 3:13:00 PM Dilaudid [IVP] IVP 0.5 mg, administered: 09/11/2016 4:13:00 PM The following Medications were prescribed to the patient: Hydrocodone/APAP 7.5mg / 325mg: take 1 orally every 6 hours as needed for pain. Dispense twelve (12). No refill. -- Julia Brown, PRollyARolly-C
--- NOTE | 2016-09-11 17:34 | ED MAR SUMMARY ---
..... Medication Administration Record [facility] [address] [place] [address] Patient: FRANNY PLUMMER Visit ID: [id number] 31y, F Weight: 99.7 kg Height/Length: 68 in BMI: 33.4 ALLERGIES: Cephalexin, Penicillins, Toradol, Shellfish-derived Products Start 12:58 09/11/2016 Wong Torres R.N. Medication Administered: IV NS (SALINE), Dose: IV Fluids over 1 hour(s), Rate: 1000 mL/hr, Dispensed: 1000 mL bag, Site: #1 right AC. Medication Ordered: IV NS : initial bolus none -, then 1000 mL/hr for X1 (NOW); Routine. Given 12:58 09/11/2016 Wong Torres R.N. Medication Administered: ZOFRAN [IVP] (ONDANSETRON HCL), Dose: 4 mg IVP over 2 minute(s), Site: #1 right AC. Medication Ordered: Zofran IV 4 mg (NOW). Given 13:15 09/11/2016 Wong Torres R.N. Medication Administered: DILAUDID [IVP] (HYDROMORPHONE HCL PF), Dose: 0.5 mg IVP over 2 minute(s), Site: #1 right AC. Medication Ordered: Dilaudid IV 0.5 mg (HIGH ALERT MEDICATION, NOW). Given 15:09/11/2016 Wong Torres R.N. Medication Administered: BENADRYL [IVP] (DIPHENHYDRAMINE HCL), Dose: 50 mg IVP over 2 minute(s), Site: #1 right AC. Medication Ordered: Benadryl IV 50 mg (NOW). Given 16:09/11/2016 Wong Torres R.N. Medication Administered: DILAUDID [IVP] (HYDROMORPHONE HCL PF), Dose: 0.5 mg IVP over 2 minute(s), Site: #1 right AC. Medication Ordered: Dilaudid IV 0.5 mg (HIGH ALERT MEDICATION, NOW).
--- NOTE | 2016-09-11 17:34 | ED DISCHARGE INSTRUCTIONS ---
Patient: FRANNY PLUMMER General Instructions [facility] VisitID: [id number] Susu [place] [id number] 31y, F Registration Date/Time: 09/11/2016 Single right ovarian cyst. INSTRUCTIONS Drink plenty of fluids. (pelvic rest). Prescription Medications: Hydrocodone/APAP 7.5mg / 325mg: take 1 orally every 6 hours as needed for pain. Dispense twelve (12). No refill. Follow-up: Follow up with your doctor in three days as needed. Follow-up with: Sp العراقي MD, Obstetrics/Gynecology, , [facility], [address] [place] [address] Follow up. Call for the next available appointment. ADDITIONAL INFORMATION Ovarian Cyst The ovary is a small organ located on each side of the uterus. During each menstrual cycle a tiny egg sac forms in the ovary. If the egg is released but does not occur, this sac usually dissolves. Sometimes, the sac may fill with fluid. It then enlarges into a painful cyst. Usually the cyst will rupture or shrink on its own. In either case, the pain gradually goes away over the next 1-3 days. If the cyst does not shrink or rupture, it may cause continued pain. Home Care: Rest in bed and avoid heavy exertion until you are feeling better. Heat to the lower abdomen usually helps (heating pad or hot packs -- a small towel soaked in hot water). You may use acetaminophen (Tylenol) or ibuprofen (Motrin, Advil) to control pain, unless another pain medicine was prescribed. [NOTE: If you have chronic liver or kidney disease or ever had a stomach ulcer or GI bleeding, talk with your doctor before using these medicines.] Follow Up: See your doctor within the next 2-3 days if your pain doesnt improve. Otherwise, follow up with your doctor after your next period or as directed by our staff. Get Prompt Medical Attention if any of the following occur: Pain worsens or fails to respond to the above measures Fever of 100.4F (38C) or higher, or as directed by your healthcare provider Heavy vaginal bleeding (soaking one pad an hour for three hours) You feel weak or dizzy Fainting Passage of a pink or whelan tissue with menstrual bleeding Pelvic Pain, Uncertain Cause Based on your visit today, the exact cause of your pelvic pain is not certain. But your condition does not appear to be serious at this time. However, the signs of a serious problem may take more time to appear. Therefore, it is important for you to watch for any new symptoms or worsening of your condition. Home Care: Rest until you are feeling better. Avoid sexual intercourse until your pain goes away. You may use acetaminophen (Tylenol) or ibuprofen (Motrin, Advil) to control pain, unless another medicine was prescribed. [NOTE: If you have chronic liver or kidney disease or ever had a stomach ulcer or GI bleeding, talk with your doctor before using these medicines.] Follow Up with your doctor as advised. If a culture test was taken, call in two days for the results. If the culture is positive, you will be given more advice at that time. Otherwise, follow-up with your doctor or this facility as instructed. Get Prompt Medical Attention if any of the following occur: Fever of 100.4F (38C) or higher, or as directed by your healthcare provider Vaginal discharge Worsening pain Weakness, dizziness or fainting Unexpected vaginal bleeding or passage of whelan or white tissue from the vagina Pain that moves to the right lower abdomen Hydrocodone Bitartrate, Acetaminophen Oral tablet What is this medicine? ACETAMINOPHEN; HYDROCODONE (a set a BERNY kim fen; nora droe KOE done) is a pain reliever. It is used to treat mild to moderate pain. How should I use this medicine? Take this medicine by mouth. Swallow it with a full glass of water. Follow the directions on the prescription label. If the medicine upsets your stomach, take the medicine with food or milk. Do not take more than you are told to take. Talk to your hydraulics teacher regarding the use of this medicine in children. This medicine is not approved for use in children. What side effects may I notice from receiving this medicine? Side effects that you should report to your doctor or health nurse behavioral health care as soon as possible: allergic reactions like skin rash, itching or hives, swelling of the face, lips, or tongue breathing problems confusion feeling faint or lightheaded, falls stomach pain yellowing of the eyes or skin Side effects that usually do not require medical attention (report to your doctor or health nurse behavioral health care if they continue or are bothersome): nausea, vomiting stomach upset What may interact with this medicine? alcohol antihistamines isoniazid medicines for depression, anxiety, or psychotic disturbances medicines for sleep muscle relaxants naltrexone narcotic medicines (opiates) for pain phenobarbital ritonavir tramadol What if I miss a dose? If you miss a dose, take it as soon as you can. If it is almost time for your next dose, take only that dose. Do not take double or extra doses. Where should I keep my medicine? Keep out of the reach of children. This medicine can be abused. Keep your medicine in a safe place to protect it from theft. Do not share this medicine with anyone. Selling or giving away this medicine is dangerous and against the law. Store at room temperature between 15 and 30 degrees C (59 and 86 degrees F). Protect from light. Keep container tightly closed. Throw away any unused medicine after the expiration date. Discard unused medicine and used packaging carefully. Pets and children can be harmed if they find used or lost packages. What should I tell my health care provider before I take this medicine? They need to know if you have any of these conditions: brain tumor Crohn's disease, inflammatory bowel disease, or ulcerative colitis drink more than 3 alcohol-containing drinks per day drug abuse or addiction head injury heart or circulation problems kidney disease or problems going to the bathroom liver disease lung disease, asthma, or breathing problems an unusual or allergic reaction to acetaminophen, hydrocodone, other opioid analgesics, other medicines, foods, dyes, or preservatives or trying to get breast-feeding What should I watch for while using this medicine? Tell your doctor or health nurse behavioral health care if your pain does not go away, if it gets worse, or if you have new or a different type of pain. You may develop tolerance to the medicine. Tolerance means that you will need a higher dose of the medicine for pain relief. Tolerance is normal and is expected if you take the medicine for a long time. Do not suddenly stop taking your medicine because you may develop a severe reaction. Your body becomes used to the medicine. This does NOT mean you are addicted. Addiction is a behavior related to getting and using a drug for a non-medical reason. If you have pain, you have a medical reason to take pain medicine. Your doctor will tell you how much medicine to take. If your doctor wants you to stop the medicine, the dose will be slowly lowered over time to avoid any side effects. You may get drowsy or dizzy when you first start taking the medicine or change doses. Do not drive, use machinery, or do anything that may be dangerous until you know how the medicine affects you. Stand or sit up slowly. There are different types of narcotic medicines (opiates) for pain. If you take more than one type at the same time, you may have more side effects. Give your health care provider a list of all medicines you use. Your doctor will tell you how much medicine to take. Do not take more medicine than directed. Call emergency for help if you have problems breathing. The medicine will cause constipation. Try to have a bowel movement at least every 2 to 3 days. If you do not have a bowel movement for 3 days, call your doctor or health nurse behavioral health care. Too much acetaminophen can be very dangerous. Do not take Tylenol (acetaminophen) or medicines that contain acetaminophen with this medicine. Many non-prescription medicines contain acetaminophen. Always read the labels carefully. You have been given the following additional information: Ovarian Cyst Pelvic Pain, Unknown Cause Hydrocodone Bitartrate, Acetaminophen Oral tablet (Electronically signed by Julia Brown P.A.-C 09/11/2016 17:33)
--- NOTE | 2016-09-11 17:34 | ED MAR SUMMARY ---
..... Medication Administration Record [facility] [address] [place] [address] Patient: FRANNY PLUMMER Visit ID: [id number] 31y, F Weight: 99.7 kg Height/Length: 68 in BMI: 33.4 ALLERGIES: Cephalexin, Penicillins, Toradol, Shellfish-derived Products Start 12:58 09/11/2016 Wong Torres R.N. Medication Administered: IV NS (SALINE), Dose: IV Fluids over 1 hour(s), Rate: 1000 mL/hr, Dispensed: 1000 mL bag, Site: #1 right AC. Medication Ordered: IV NS : initial bolus none -, then 1000 mL/hr for X1 (NOW); Routine. Given 12:58 09/11/2016 Wong Torres R.N. Medication Administered: ZOFRAN [IVP] (ONDANSETRON HCL), Dose: 4 mg IVP over 2 minute(s), Site: #1 right AC. Medication Ordered: Zofran IV 4 mg (NOW). Given 13:15 09/11/2016 Wong Torres R.N. Medication Administered: DILAUDID [IVP] (HYDROMORPHONE HCL PF), Dose: 0.5 mg IVP over 2 minute(s), Site: #1 right AC. Medication Ordered: Dilaudid IV 0.5 mg (HIGH ALERT MEDICATION, NOW). Given 15:09/11/2016 Wong Torres R.N. Medication Administered: BENADRYL [IVP] (DIPHENHYDRAMINE HCL), Dose: 50 mg IVP over 2 minute(s), Site: #1 right AC. Medication Ordered: Benadryl IV 50 mg (NOW). Given 16:09/11/2016 Wong Torres R.N. Medication Administered: DILAUDID [IVP] (HYDROMORPHONE HCL PF), Dose: 0.5 mg IVP over 2 minute(s), Site: #1 right AC. Medication Ordered: Dilaudid IV 0.5 mg (HIGH ALERT MEDICATION, NOW).
--- NOTE | 2016-09-11 17:34 | ED DISCHARGE INSTRUCTIONS ---
Patient: FRANNY PLUMMER General Instructions [facility] VisitID: [id number] Susu [place] [id number] 31y, F Registration Date/Time: 09/11/2016 Single right ovarian cyst. INSTRUCTIONS Drink plenty of fluids. (pelvic rest). Prescription Medications: Hydrocodone/APAP 7.5mg / 325mg: take 1 orally every 6 hours as needed for pain. Dispense twelve (12). No refill. Follow-up: Follow up with your doctor in three days as needed. Follow-up with: Sp العراقي MD, Obstetrics/Gynecology, , [facility], [address] [place] [address] Follow up. Call for the next available appointment. ADDITIONAL INFORMATION Ovarian Cyst The ovary is a small organ located on each side of the uterus. During each menstrual cycle a tiny egg sac forms in the ovary. If the egg is released but does not occur, this sac usually dissolves. Sometimes, the sac may fill with fluid. It then enlarges into a painful cyst. Usually the cyst will rupture or shrink on its own. In either case, the pain gradually goes away over the next 1-3 days. If the cyst does not shrink or rupture, it may cause continued pain. Home Care: Rest in bed and avoid heavy exertion until you are feeling better. Heat to the lower abdomen usually helps (heating pad or hot packs -- a small towel soaked in hot water). You may use acetaminophen (Tylenol) or ibuprofen (Motrin, Advil) to control pain, unless another pain medicine was prescribed. [NOTE: If you have chronic liver or kidney disease or ever had a stomach ulcer or GI bleeding, talk with your doctor before using these medicines.] Follow Up: See your doctor within the next 2-3 days if your pain doesnt improve. Otherwise, follow up with your doctor after your next period or as directed by our staff. Get Prompt Medical Attention if any of the following occur: Pain worsens or fails to respond to the above measures Fever of 100.4F (38C) or higher, or as directed by your healthcare provider Heavy vaginal bleeding (soaking one pad an hour for three hours) You feel weak or dizzy Fainting Passage of a pink or whelan tissue with menstrual bleeding Pelvic Pain, Uncertain Cause Based on your visit today, the exact cause of your pelvic pain is not certain. But your condition does not appear to be serious at this time. However, the signs of a serious problem may take more time to appear. Therefore, it is important for you to watch for any new symptoms or worsening of your condition. Home Care: Rest until you are feeling better. Avoid sexual intercourse until your pain goes away. You may use acetaminophen (Tylenol) or ibuprofen (Motrin, Advil) to control pain, unless another medicine was prescribed. [NOTE: If you have chronic liver or kidney disease or ever had a stomach ulcer or GI bleeding, talk with your doctor before using these medicines.] Follow Up with your doctor as advised. If a culture test was taken, call in two days for the results. If the culture is positive, you will be given more advice at that time. Otherwise, follow-up with your doctor or this facility as instructed. Get Prompt Medical Attention if any of the following occur: Fever of 100.4F (38C) or higher, or as directed by your healthcare provider Vaginal discharge Worsening pain Weakness, dizziness or fainting Unexpected vaginal bleeding or passage of whelan or white tissue from the vagina Pain that moves to the right lower abdomen Hydrocodone Bitartrate, Acetaminophen Oral tablet What is this medicine? ACETAMINOPHEN; HYDROCODONE (a set a BERNY kim fen; nora droe KOE done) is a pain reliever. It is used to treat mild to moderate pain. How should I use this medicine? Take this medicine by mouth. Swallow it with a full glass of water. Follow the directions on the prescription label. If the medicine upsets your stomach, take the medicine with food or milk. Do not take more than you are told to take. Talk to your cook relief regarding the use of this medicine in children. This medicine is not approved for use in children. What side effects may I notice from receiving this medicine? Side effects that you should report to your doctor or health customer care assistant as soon as possible: allergic reactions like skin rash, itching or hives, swelling of the face, lips, or tongue breathing problems confusion feeling faint or lightheaded, falls stomach pain yellowing of the eyes or skin Side effects that usually do not require medical attention (report to your doctor or health customer care assistant if they continue or are bothersome): nausea, vomiting stomach upset What may interact with this medicine? alcohol antihistamines isoniazid medicines for depression, anxiety, or psychotic disturbances medicines for sleep muscle relaxants naltrexone narcotic medicines (opiates) for pain phenobarbital ritonavir tramadol What if I miss a dose? If you miss a dose, take it as soon as you can. If it is almost time for your next dose, take only that dose. Do not take double or extra doses. Where should I keep my medicine? Keep out of the reach of children. This medicine can be abused. Keep your medicine in a safe place to protect it from theft. Do not share this medicine with anyone. Selling or giving away this medicine is dangerous and against the law. Store at room temperature between 15 and 30 degrees C (59 and 86 degrees F). Protect from light. Keep container tightly closed. Throw away any unused medicine after the expiration date. Discard unused medicine and used packaging carefully. Pets and children can be harmed if they find used or lost packages. What should I tell my health care provider before I take this medicine? They need to know if you have any of these conditions: brain tumor Crohn's disease, inflammatory bowel disease, or ulcerative colitis drink more than 3 alcohol-containing drinks per day drug abuse or addiction head injury heart or circulation problems kidney disease or problems going to the bathroom liver disease lung disease, asthma, or breathing problems an unusual or allergic reaction to acetaminophen, hydrocodone, other opioid analgesics, other medicines, foods, dyes, or preservatives or trying to get breast-feeding What should I watch for while using this medicine? Tell your doctor or health customer care assistant if your pain does not go away, if it gets worse, or if you have new or a different type of pain. You may develop tolerance to the medicine. Tolerance means that you will need a higher dose of the medicine for pain relief. Tolerance is normal and is expected if you take the medicine for a long time. Do not suddenly stop taking your medicine because you may develop a severe reaction. Your body becomes used to the medicine. This does NOT mean you are addicted. Addiction is a behavior related to getting and using a drug for a non-medical reason. If you have pain, you have a medical reason to take pain medicine. Your doctor will tell you how much medicine to take. If your doctor wants you to stop the medicine, the dose will be slowly lowered over time to avoid any side effects. You may get drowsy or dizzy when you first start taking the medicine or change doses. Do not drive, use machinery, or do anything that may be dangerous until you know how the medicine affects you. Stand or sit up slowly. There are different types of narcotic medicines (opiates) for pain. If you take more than one type at the same time, you may have more side effects. Give your health care provider a list of all medicines you use. Your doctor will tell you how much medicine to take. Do not take more medicine than directed. Call emergency for help if you have problems breathing. The medicine will cause constipation. Try to have a bowel movement at least every 2 to 3 days. If you do not have a bowel movement for 3 days, call your doctor or health customer care assistant. Too much acetaminophen can be very dangerous. Do not take Tylenol (acetaminophen) or medicines that contain acetaminophen with this medicine. Many non-prescription medicines contain acetaminophen. Always read the labels carefully. You have been given the following additional information: Ovarian Cyst Pelvic Pain, Unknown Cause Hydrocodone Bitartrate, Acetaminophen Oral tablet (Electronically signed by Julia Brown P.A.-C 09/11/2016 17:33)
== END 2016-09-11 16:25 | disposition home or self-care (01) ==
LOC: ED SRH 12:24
DX: N83.291 Other ovarian cyst, right side (principal); Z79.891 Long term (current) use of opiate analgesic; Z88.0 Allergy status to penicillin; Z88.1 Allergy status to other antibiotic agents; Z88.5 Allergy status to narcotic agent; Z91.013 Allergy to seafood
CPT/HCPCS: 90004; 90100; 90195; 90197; 91227; 91228; 92235; 92530; 93070; 95059